=== PATIENT | male | born 1990 | race Caucasian/White ===

== ENCOUNTER 2018-06-21 13:53 | Emergency (ER) | payer OTHER ==
[~2018-06-21] VITALS: Ht 175.3 cm; Wt 84.0 kg
[2018-06-21 15:17] LABS: HEMATOCRIT 44.3 % (38.0-50.0); HEMOGLOBIN 15.8 G/DL (12.5-16.6); MCH 31.2 PG (29.0-34.0); MCHC 35.7 G/DL (30.0-36.0); MCV 87.4 FL (86-99); PLATELET COUNT 236 K/uL (156-360); RBC DIS.WIDTH-CV 12.6 % (11.8-14.6); RED BLOOD COUNT 5.07 M/uL (4.00-5.50)
[2018-06-21 15:30] VITALS: BP 131/79
[2018-06-21 15:35] LABS: CHLORIDE 110 mEq/L (99-109); SODIUM 142 mEq/L (136-147)
[2018-06-21 15:37] LABS: GLUCOSE 95 mg/dL (70-99)
[2018-06-21 15:41] LABS: GFR ESTIMATE (CALCULATED) > 59 mL/min/ (58.99-99999); UREA NITROGEN (BUN) 17 mg/dL (9-23)
== END 2018-06-21 16:20 | disposition left against medical advice (07) ==
LOC: EME 13:53
PROVIDERS: Physician Assistant
DX: R51 Headache (principal)
CPT/HCPCS: 70450; 80048; 85027; 99281; 99285; J1100; J1200; J2765; J7030